=== PATIENT | male | born 1950 | race Caucasian/White ===

== ENCOUNTER → 2023-08-27 12:27 | Outpatient (CLI) | payer OTHER, SELFPAY ==
--- NOTE | 2023-08-27 | DI.ECHO.S_ITS ---
[facility] : : [address] : : [place] : : [id number] : : Phone: [phone] Echocardiogram Report + + :Name: NARINDER MATOS Study Date: 08/27/2023 Height: 71 in : :[facility] ReadingLocation: Weight: 212 lb : : Gender: Male BSA: 2.2 m2 : :: 1950 Age: 72 yrs BP: 159/89 mmHg: :Reason For Study: CORONARY HEART DISEASE : :Ordering Physician: ODALYS, : :JAD Performed By: Toan Alex : :Referring: JAD MORROW : + + Interpretation Summary The left ventricle is normal in size. Left ventricular systolic function is normal. The ejection fraction is estimated to be 60-65%. Diastolic parameters suggest a relaxation abnormality of the left ventricle, consistent with probable normal filling pressures. Borderline right ventricular enlargement. The right ventricular systolic function is normal. The left atrial size is normal. There is mild aortic regurgitation. The ascending aorta is mild-moderately enlarged. Procedure: A two-dimensional transthoracic echocardiogram with color flow and Doppler was performed. The study quality was technically adequate. There is no prior echocardiogram noted for this patient. The patient was in sinus rhythm with heart rates between 61-65 bpm during the exam. Left Ventricle: The left ventricle is normal in size. Left ventricular wall thickness is mildly increased. Left ventricular systolic function is normal. The ejection fraction is estimated to be 60-65%. There are no obvious focal wall motion abnormalities noted but poor endocardial definition reduces the sensitivity for the detection of such. Diastolic parameters suggest a relaxation abnormality of the left ventricle, consistent with probable normal filling pressures. Right Ventricle: Borderline right ventricular enlargement. The right ventricular systolic function is normal. Atria: The left atrial size is normal. Right atrial size is normal. The interatrial septum grossly appears intact with no obvious evidence for an atrial septal defect. Mitral Valve: The mitral valve is normal in structure and function. There is no mitral valve stenosis. There is trace mitral regurgitation. Aortic Valve: The aortic valve is trileaflet. The aortic valve is mildly calcified. There is no aortic valve stenosis. There is mild aortic regurgitation. Tricuspid Valve: The tricuspid valve is normal in structure and function. There is no tricuspid stenosis. There is trace tricuspid regurgitation. Pulmonic Valve: The pulmonic valve is not well visualized. There is no pulmonic valvular stenosis. There is no pulmonic valvular regurgitation. Great Vessels: The aortic root is normal size. The ascending aorta is mild- moderately enlarged. The inferior vena cava was not visualized. Pericardium/ Pleura There is no pericardial effusion. There is no pleural effusion. MMode/2D Measurements & Calculations LVIDd: 4.7 cm LVOT diam: 2.2 cm LVIDs: 3.3 cm Ao root diam: 3.7 cm FS: 30.5 % asc Aorta Diam: 4.2 cm IVSd: 1.3 cm Ao Arch Diam (Prox Trans): 3.4 cm LVPWd: 1.1 cm LV swann. diameter/BSA (cm/m^2): 2.2 LV sys. diameter/BSA (cm/m^2): 1.5 LA A2 area: 18.3 cm2 RA long axis: 4.8 cm LA A4 area: 20.7 cm2 RA area: 14.1 cm2 LA length (vol): 6.1 cm RA vol: 34.9 ml LA vol: 52.9 ml RA : 16.2 ml/m2 LA vol index: 24.5 ml/m2 RVD1 (basal): 4.0 cm RVD2 (mid): 3.5 cm TAPSE: 2.3 cm Doppler Measurements & Calculations Ao V2 max: 160.1 cm/sec LVOT Max Mark: 118.5 cm/sec Ao V2 mean: 114.6 cm/sec LV V1 max P.6 mmHg Ao max P.3 mmHg LV V1 VTI: 28.7 cm Ao mean P.9 mmHg DAIN(I,D): 3.2 cm2 Ao V2 VTI: 34.9 cm DAIN(V,D): 2.8 cm2 sev ratio: 0.82 DAIN indexed to BSA (cm^2/m^2): 1.5 MV E max mark: 54.1 cm/sec TR max mark: 234.2 cm/sec MV A max mark: 107.3 cm/sec TR max P.9 mmHg MV E/A: 0.50 PA V2 max: 131.5 cm/sec Med Peak E' Mark: 5.3 cm/sec PA V2 mean: 85.9 cm/sec E/E' med: 10.2 PA mean P.4 mmHg Lat Peak E' Mark: 6.5 cm/sec PA pr(Accel): 39.6 mmHg E/E' lat: 8.3 E/e' average: 9.2 MV dec time: 0.32 sec SVLVOT): 110.0 ml Reading Physician:04:23 PM
== END ==
PROVIDERS: Referring Provider Family Medicine; Visit Provider Family Medicine
DX: I35.1 Nonrheumatic aortic (valve) insufficiency (principal); I25.10 Atherosclerotic heart disease of native coronary artery without angina pectoris; I77.89 Other specified disorders of arteries and arterioles
CPT/HCPCS: 93306